=== PATIENT | female | born 1985 | race Caucasian/White ===

== ENCOUNTER 2018-01-20 16:26 | Emergency (ER) | payer BC, OTHER ==
[2018-01-20 16:35] VITALS: BP 117/62
--- NOTE | 2018-01-20 16:42 | UC ---
Respiratory Complaint HPI - HPI Summary HPI Summary: Patient has cough, ear fullness sinus pressure and pain for the past 3 days, no fever. - History of Current Complaint Chief Complaint: UCRespiratory Stated Complaint: COLD/COUGH Hx Obtained From: Patient Hx Last Menstrual Period: 4 wks ago ?: No Onset/Duration: Sudden Onset, Lasting Days - 3 Timing: Constant Severity Initially: Moderate Severity Currently: Moderate Pain Intensity: 3 Character: Cough: Nonproductive Aggravating Factors: Deep Breaths, Recumbent Position Alleviating Factors: Nothing Associated Signs And Symptoms: Positive: URI, Nasal Congestion, Sinus Discomfort - Allergies/Home Medications Allergies/Adverse Reactions: Allergies Allergy/AdvReac Type Severity Reaction Status Date / Time gluten Allergy Nausea Verified 01/20/18 16:36 PMH/Surg Hx/FS Hx/Imm Hx Previously Healthy: Yes - Surgical History Surgical History: Yes Surgery Procedure, Year, and Place: - Family History Known Family History: Positive: None, Cardiac Disease, Other - cancer - Social History Alcohol Use: None Substance Use Type: None Smoking Status (MU): Never Smoked Tobacco - Immunization History Most Recent Tetanus Shot: 2-3 mos ago Review of Systems Constitutional: Fatigue Skin: Negative Eyes: Negative ENT: Sore Throat, Ear Ache, Nasal Discharge, Sinus Congestion Respiratory: Cough Cardiovascular: Negative Gastrointestinal: Negative Genitourinary: Negative Motor: Negative Neurovascular: Negative Musculoskeletal: Negative Neurological: Negative Psychological: Negative Is Patient Immunocompromised?: No All Other Systems Reviewed And Are Negative: Yes Physical Exam Triage Information Reviewed: Yes Appearance: Well-Nourished, Ill-Appearing, Pain Distress Vital Signs: Initial Vital Signs Temp 98.5 F 01/20/18 16:33 Pulse 87 01/20/18 16:33 Resp 12 01/20/18 16:33 BP 117/62 01/20/18 16:33 Pulse Ox 98 01/20/18 16:33 Vital Signs Reviewed: Yes Eye Exam: Normal ENT: Positive: Pharyngeal erythema, TM bulging, TM dull, TM red - left ear Dental Exam: Normal Neck exam: Normal Neck: Positive: Supple, Nontender, No Lymphadenopathy Respiratory Exam: Normal Respiratory: Positive: Chest non-tender, Normal breath sounds, No respiratory distress, No accessory muscle use, Wheezing, Inspiration Cardiovascular Exam: Normal Cardiovascular: Positive: RRR, No Murmur, Pulses Normal Abdominal Exam: Normal Abdomen Description: Positive: Nontender, No Organomegaly, Soft Bowel Sounds: Positive: Present Musculoskeletal Exam: Normal Neurological Exam: Normal Psychological Exam: Normal Skin Exam: Normal UC Diagnostic Evaluation - Laboratory O2 Sat by Pulse Oximetry: 98 Respiratory Course/Dx - Course Course Of Treatment: hx obtained, exam performed ,meds reviewed, treated for wheezing and educated on cold symtpom care. - Differential Dx/Diagnosis Differential Diagnosis/HQI/PQRI: Bronchitis, Laryngitis, Sinusitis Provider Diagnoses: wheezing, viral cold, left otitis media Discharge - Sign-Out/Discharge Documenting (check all that apply): Discharge - Discharge Plan Condition: Stable Disposition: HOME Prescriptions: Amoxicillin PO (*) [Amoxicillin 875 MG (*)] 875 mg PO BID #19 tab predniSONE TAB* [Deltasone TAB*] 40 mg PO DAILY #14 tab Patient Education Materials: Ear Infection (ED) Referrals: Lisa Arriaga MD [Primary Care Provider] - Additional Instructions: 1. take the medication as prescribed. 2. Increase fluid intake 3. Humidify the air at home, follow up if not improving in the next week. - Billing Disposition and Condition Condition: STABLE Disposition: HOME
[2018-01-20] MEDS ORDERED: Amoxicillin PO (*) 500 MG CAP PO ONE (16:45)
== END 2018-01-20 16:56 | disposition home or self-care (01) ==
LOC: UCEAST 16:26
DX: J00 Acute nasopharyngitis [common cold] (principal); R06.2 Wheezing; H66.92 Otitis media, unspecified, left ear
CPT/HCPCS: 99212; A9270-GY; G0463

== ENCOUNTER 2018-03-05 09:39 | Emergency (ER) | payer BC, OTHER ==
[2018-03-05 09:58] VITALS: BP 127/61
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
== END 2018-03-05 11:15 | disposition home or self-care (01) ==
LOC: UCEAST 09:39
DX: M54.9 Dorsalgia, unspecified (principal); V49.88XA Car occupant (driver) (passenger) injured in other specified transport accidents, initial encounter; Y93.89 Activity, other specified; Y92.9 Unspecified place or not applicable
CPT/HCPCS: 72110; 99211; G0463

== ENCOUNTER 2018-08-12 09:25 | Emergency (ER) | payer BC, OTHER ==
[2018-08-12] MEDS ORDERED: Metoclopramide IV* 5 MG/ML 2 ML VIAL IV ONE (09:37)
[2018-08-12] MEDS ORDERED: NS 0.9% 1000 ML* 1,000 ML IV ONE ×2 (09:37→11:09)
[2018-08-12 09:57] LABS: ABS Basophils 0.1 10^3/ul (0-0.2); ABS Eosinophils 0 10^3/ul (0-0.6); ABS Lymphocytes 2.1 10^3/ul (1.0-4.8); ABS Monocytes 0.7 10^3/ul (0-0.8); ABS Neutrophils 7.6 10^3/ul (1.5-7.7); ABS Nucleated RBC 0 10^3/ul; Eosinophil % 0.3 % (0-6); Hematocrit 39 % (35-47); Hemoglobin 13.6 g/dl (12.0-16.0); Lymphocyte % 20.1 % (25-47); Mean Corpuscular HGB Conc 35 g/dl (31-36); Mean Corpuscular Hemoglobin 31 pg (27-31); Mean Corpuscular Volume 88 fL (80-97); Mean Platelet Volume 8.1 fL (7.4-10.4); Nucleated Red Blood Cells % 0; Platelet Count 257 10^3/ul (150-450); Red Blood Count 4.42 10^6/ul (4.00-5.40); Red Cell Distribution Width 13 % (10.5-15); White Blood Count 10.5 10^3/ul (3.5-10.8)
[2018-08-12 10:16] LABS: EGFR Non-African American 113.7 (>60)
[2018-08-12 12:31] VITALS: BP 95/59
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
== END 2018-08-12 12:30 | disposition home or self-care (01) ==
LOC: ED 09:25
DX: O21.0 Mild hyperemesis gravidarum (principal); Z3A.08 8 weeks gestation of pregnancy
CPT/HCPCS: 36415; 80053; 83605; 83690; 83735; 84702; 85025; 86140; 96361; 96374; 99283; J2765